=== PATIENT | female | born 1965 | race Caucasian/White ===

== ENCOUNTER 2018-08-20 18:27 | Emergency (ER) | payer OTHER ==
[~2018-08-20] VITALS: Ht 152.4 cm; Wt 78.1 kg
[2018-08-20 18:42] VITALS: Ht 152.4 cm; Wt 78.1 kg
[2018-08-20] MEDS ORDERED: TRAM50TA2 PO (21:42)
[2018-08-20] MEDS ORDERED: IBUP800T48 PO (21:42)
--- NOTE | 2018-08-20 21:43 | ERD ---
ER Documentation Chief Complaint Chief Complaint L ear pain with drainage today HPI 53-year-old female states she has had a cold for the past week but then today she developed severe left ear pain that felt like a fullness and it felt clogged all day and then she noticed some bloody discharge from the ear. She did clean her ear with a Q-tip but states she did not stick it in very far. She has had no fever. ROS All systems reviewed and are negative except as per history of present illness. Medications Home Meds Active Scripts Tramadol HCl (Tramadol HCl) 50 Mg Tablet, 50 MG PO Q4 PRN for PAIN, #20 TAB Prov:ANDRE ESPARZA PA-C 08/20/18 Ibuprofen* (Motrin*) 800 Mg Tab, 800 MG PO Q6, #30 TAB Prov:ANDRE ESPARZA PA-C 08/20/18 Allergies Allergies: Coded Allergies: No Known Allergy (Unverified , 08/20/18) PMhx/Soc Medical and Surgical Hx: pt denies Medical Hx, pt denies Surgical Hx Hx Alcohol Use: No Hx Substance Use: No Hx Tobacco Use: No Smoking Status: Never smoker FmHx Family History: No diabetes Physical Exam Vitals Vital Signs Date Temp Pulse Resp B/P (MAP) Pulse Ox O2 O2 Flow FiO2 Time Delivery Rate 08/20/18 98.1 90 20 155/88 98 18:42 (110) Physical Exam INITIAL VITAL SIGNS: Reviewed by me GENERAL: Awake, alert and oriented x 4, well appearing, nontoxic, speaking in full sentences. No acute distress HEAD: Atraumatic NECK: Supple. No masses. Full range of motion. No meningismus. No midline tenderness. EYES: EOMI. PERRL. EAR: No tenderness over the mastoids bilaterally. No exudates in the canals. Left tympanic membrane is ruptured THROAT: No tonilar erythema or edema. No exudates. Uvula midline. No kissing to nsils. RESPIRATORY: Clear to auscultation bilaterally. Symmetric chest wall rise. No wheezing or rales. No accessory muscle use. CV: Regular rate and rhythm. No murmurs, rubs, or gallops. Procedures/MDM This patient has spontaneous rupture of the left tympanic membrane. No evidence of infection. Prescription for ibuprofen and tramadol given. Patient counseled regarding my diagnostic impression and care plan. Prior to discharge all questions answered. Pt agrees with treatment plan and understands strict return precautions. Pt is instructed to follow up with primary care provider within 24- 48 hours. Precautionary instructions provided including instructions to return to the ER if not improving or for any worsening or changing symptoms or concerns. Departure Diagnosis: Primary Impression: Tympanic membrane rupture Condition: Stable Patient Instructions: Eardrum Rupture (Perforation) Additional Instructions: Call your primary care doctor TOMORROW for an appointment during the next 1-2 days.See the doctor sooner or return here if your condition worsens before your appointment time. ANDRE ESPARZA PA-C Aug 20, 2018 21:43
[2018-08-20 21:55] VITALS: BP 144/72; PULSE 72; RESP 16
== END 2018-08-20 21:56 | disposition home or self-care (01) ==
LOC: FTE 18:27
DX: H72.92 Unspecified perforation of tympanic membrane, left ear (principal)
CPT/HCPCS: 99283